=== PATIENT | female | born 1945 | race Asian ===

== ENCOUNTER 2019-10-13 12:34 | Emergency (ER) | payer OTHER ==
[~2019-10-13] VITALS: Ht 165.1 cm; Wt 54.0 kg
[2019-10-13 12:41] VITALS: BP 127/75
[2019-10-13] MEDS ORDERED: traMADol 50MG tablet PO ONE (14:15)
[2019-10-13] MEDS ORDERED: CYCL-1 PO (15:42)
[2019-10-13] MEDS ORDERED: IBUP-1984 PO (15:42)
== END 2019-10-13 15:54 | disposition home or self-care (01) ==
LOC: ER 12:34
DX: S42.035A Nondisplaced fracture of lateral end of left clavicle, initial encounter for closed fracture (principal); R07.89 Other chest pain; M54.89 Other dorsalgia; Z79.899 Other long term (current) drug therapy; X58.XXXA Exposure to other specified factors, initial encounter; Y93.89 Activity, other specified; Y92.89 Other specified places as the place of occurrence of the external cause; Y99.8 Other external cause status
CPT/HCPCS: 71250; 72125; 72131; 99285